=== PATIENT | female | born 1995 | race Caucasian/White ===

== ENCOUNTER → 2022-05-01 | Outpatient (CLI) | payer SELFPAY ==
[2022-05-02 09:53] LABS: Candida species (DNA Probe) Negative (NEGATIVE); G. vaginalis (DNA Probe) Negative (NEGATIVE); T. vaginalis (DNA Probe) Negative (NEGATIVE)
[2022-05-02 09:54] LABS: Candida species (DNA Probe) Negative (NEGATIVE); G. vaginalis (DNA Probe) Negative (NEGATIVE); T. vaginalis (DNA Probe) Negative (NEGATIVE)
[2022-05-03 01:10] LABS: CHLAMYDIA TRACHOMATIS, NAA Negative (Negative)
[2022-05-03 04:11] LABS: CHLAMYDIA BY NAA Negative (Negative); GONOCOCCUS BY NAA Negative (Negative); TRICH VAG BY NAA Negative (Negative)
[2022-05-03 05:10] LABS: HIV AB/P24 AG SCREEN Non Reactive (Non Reactive)
== END | disposition home or self-care (01) ==
LOC: LAB SHORT 14:15
PROVIDERS: Physician Assistant; Physician Assistant Surgical
DX: N76.0 Acute vaginitis (principal); N76.89 Other specified inflammation of vagina and vulva; R30.0 Dysuria; Z72.51 High risk heterosexual behavior
CPT/HCPCS: 86592; 87086; 87389; 87480; 87491; 87510; 87591; 87660; 87661

== ENCOUNTER → 2024-03-27 | Outpatient (CLI) | payer BC ==
[2024-03-27 19:06] LABS: Bacterial Vaginosis PCR Negative (NEGATIVE); Candida Group, PCR NOT DETECTED (NOT DETECT); Candida glabrata-krusei, PCR NOT DETECTED (NOT DETECT)
[2024-03-30 16:25] LABS: APTIMA MEDIA TYPE Unisex Swab; C. TRACHOMATIS BY TMA Negative (Negative); N. GONORRHOEAE BY TMA Negative (Negative); SPECIMEN SOURCE Vaginal
== END ==
LOC: LAB SHORT 10:55 → LAB 10:55
PROVIDERS: Physician Assistant Medical
DX: N30.01 Acute cystitis with hematuria (principal); R30.0 Dysuria
CPT/HCPCS: 87077; 87086; 87186; 87481; 87491; 87591; 87661; 87801